=== PATIENT | female | born 1935 | race Caucasian/White ===

== ENCOUNTER 2016-11-14 10:09 | Day surgery (SDC) | payer MEDICARE ==
[~2016-11-14] VITALS: Ht 165.1 cm; Wt 86.2 kg
[~2016-11-14 10:09] MED LIST: ATEN1TAB73 PO; COUM2TAB PO; LEVO100T60 PO; LOVA1TAB47 PO; MULTTAB PO; PERC5TAB12 PO; TELM40 PO; VITA100020 SL
[2016-11-14] MEDS ORDERED: CHLORHEXIDINE GLUCONATE 2 % 1 PACK (2 CLOTHS) TOP SCH (10:45)
[2016-11-14] MEDS ORDERED: SODIUM CHLORID 0.9% 500 ML IV SCH (10:45)
[2016-11-14] MEDS ORDERED: LACTATED RINGER'S 1000 ML IV SCH (10:45)
[2016-11-14] MEDS ORDERED: NS 1000 ML IV SCH (10:45)
[2016-11-14] MEDS ORDERED: POVIDONE IODINE 5% (ANTISEPSIS KIT) 4 APPLICATIONS EACH NARE SCH (10:45)
[2016-11-14] MEDS ORDERED: INSULIN HUMAN REGULAR 1,000 UNITS/10 ML VIAL SQ PRN (10:45)
[2016-11-14] MEDS ORDERED: VANCOMYCIN 1000 MG/NS 250 ML IV SCH ×2 (10:45)
[2016-11-14] MEDS ORDERED: METOPROLOL TARTRATE 25 MG TAB PO PRN (10:45)
[2016-11-14] MEDS ORDERED: ceFAZolin 2 GM PREMIX 50 ML IV SCH (10:45)
[2016-11-14 10:49] VITALS: BP 168/80; PULSE 63; RESP 18; TEMP 98.1; O2SAT 97
[2016-11-14] MEDS ORDERED: SYSTSOL15 EACH EYE (11:03)
[2016-11-14] MEDS ORDERED: WARF4TAB51 PO (11:03)
[2016-11-14] MEDS ORDERED: LOVA20TA PO (11:03)
[2016-11-14] MEDS ORDERED: MELA5CAP2 (11:03)
[2016-11-14] MEDS ORDERED: ATEN25TA PO (11:03)
[2016-11-14] MEDS ORDERED: FLUO0.1S2 EACH EYE (11:03)
[2016-11-14] MEDS ORDERED: TELM1TAB PO (11:03)
[2016-11-14] MEDS ORDERED: BIOT1SUB SL (11:03)
[2016-11-14 11:05] LABS: AUTOMATED NEUTROPHIL # 5.8 TH/MM3 (1.8-7.7); BASOPHIL # 0.1 TH/MM3 (0-0.2); BASOPHIL % 0.7 % (0.0-2.0); EOSINOPHIL # 0.1 TH/MM3 (0-0.4); EOSINOPHIL % 1.2 % (0.0-4.0); HEMATOCRIT 43.4 % (35.0-46.0); HEMO FLAGS DIFF FINAL; LYMPH % 16.2 % (9.0-44.0); LYMPHOCYTE # 1.2 TH/MM3 (1.0-4.8); MEAN CELL VOLUME 95.1 FL (80.0-100.0); MEAN CORPUSCULAR HEMOGLOBIN 32.4 PG (27.0-34.0); MEAN CORPUSCULAR HGB CONC 34.1 % (32.0-36.0); MONO % 6.5 % (0.0-8.0); NEUT % 75.4 % (16.0-70.0); PLATELET COUNT 266 TH/MM3 (150-450); RED BLOOD COUNT 4.57 MIL/MM3 (4.00-5.30); RED CELL DISTRIBUTION WIDTH 14.3 % (11.6-17.2); WHITE BLOOD COUNT 7.7 TH/MM3 (4.0-11.0)
[2016-11-14 11:17] LABS: INTERNATIONAL NORMALIZED RATIO 1.3 RATIO; PROTHROMBIN TIME - PATIENT 14.9 SEC (9.8-11.6)
[2016-11-14 11:30] LABS: BICARBONATE 25.4 MEQ/L (21.0-32.0); POTASSIUM 5.3 MEQ/L (3.5-5.1)
[2016-11-14] MEDS ORDERED: PROPOFOL 200 MG/20 ML AMP IV ONE (13:10)
[2016-11-14] MEDS ORDERED: LIDOCAINE HCL 2% 50 ML VIAL ONE (13:16)
[2016-11-14] MEDS ORDERED: VANCOMYCIN 500 MG VIAL ONE (13:16)
[2016-11-14] MEDS ORDERED: MIDAZOLAM HCL 2 MG/2 ML VIAL ONE (13:24)
--- NOTE | 2016-11-15 10:28 | MP ---
cc: NICKI VALDOVINOS DATE OF SURGERY: 11/14/2016 INDICATION End-of-life of [employer] dual-chamber pacemaker, sick sinus syndrome with severe symptomatic bradycardia. PROCEDURE PERFORMED 1. Explantation of end-of-life [employer] dual-chamber pacemaker. 2. Placement of a new [employer] dual chamber pacemaker. ACCESS SITE Left subclavicular area. EQUIPMENT USED Generator: [employer] model [id number] dual-chamber pacemaker, serial number [id number]. Right atrial lead: [employer] model 1668PC, serial number [id number], placed 09/06/2009 (preserved). Right ventricular lead: [employer] model 1688PC, serial number [id number], placed 09/06/2009 (preserved). LEAD TESTING Right atrial lead: P-wave 2.7 millivolts, lead impedance 540 ohms, pacing threshold 0.75 volts at 0.4 milliseconds, pacing at 10 volts. Right ventricular lead: R-wave over 12 millivolts, lead impedance 660 ohms, pacing threshold 1.5 volts at 0.6 milliseconds. PARAMETERS Mode DDDR, low rate 60, upper rate 125. DIAGNOSIS Successful replacement of end-of-life [employer] dual-chamber pacemaker using a new [employer] dual-chamber device. DISPOSITION Ms. Maldonado will be monitored on telemetry after her procedure. She will be discharged home later today. I will see her back for a wound check and chronic device reprogramming in our office within two weeks. She will then see Dr. Rutledge for long-term device follow-up. MD TIGIST Pichardo/UNRULY /2:24 PM /10:06 AM ZOILA
--- NOTE | 2016-11-15 11:20 | EKG ---
Date Performed: 11/14/2016 Time Performed: 11:13:20 PTAGE: 80 years EKG: Sinus bradycardia Normal ECG except for rate PREVIOUS TRACING : 03/28/2013 09.04 DOCTOR: Chris Lloyd Interpretating Date/Time 11/15/2016 11:18:19
== END 2016-11-14 16:30 | disposition home or self-care (01) ==
LOC: HDOC 10:09 → HDIC 10:10 → HDOC 16:30
PROVIDERS: ATTEND Internal Medicine Interventional Cardiology
DX: Z45.010 Encounter for checking and testing of cardiac pacemaker pulse generator [battery] (principal); I49.5 Sick sinus syndrome; I48.91 Unspecified atrial fibrillation; E78.5 Hyperlipidemia, unspecified; I10 Essential (primary) hypertension
CPT/HCPCS: 33228; 80048; 85025; 85610; 85730; 93005; C1785; J0690; J2250; J3010; J3370; J7050

== ENCOUNTER → 2017-01-31 | Day surgery (SDC) | payer MEDICARE ==
[~2017-01-31] MED LIST changes: -ATEN1TAB73 PO; +ATEN25TA PO; +BIOT1SUB SL; -COUM2TAB PO; +FLUO0.1S2 EACH EYE; +LACTATED RINGER'S 1,000 ML BAG IV ONE; +LACTATED RINGER'S 1000 ML INJ 1,000 ML ONE; -LEVO100T60 PO; -LOVA1TAB47 PO; +LOVA20TA PO; +MELA5CAP2; -MULTTAB PO; -PERC5TAB12 PO; +PROPOFOL 500 MG/50 ML BTL IV ONE; +SYSTSOL15 EACH EYE; +TELM1TAB PO; -TELM40 PO; -VITA100020 SL; +WARF4TAB51 PO
--- NOTE | 2017-01-31 13:05 | GIPROC ---
[facility] [address] [facility], [address] COLONOSCOPY PROCEDURE REPORT EXAM DATE: 01/31/2017 PATIENT NAME: Yasmin Maldonado MR #: [id number] BIRTHDATE: 1935 ENDOSCOPIST: Thomas Laurent MD ORDER #: [id number] NURSE CONSULTANT: Melly Elise RN STATUS: outpatient INDICATIONS: The patient is a 81 yr old female here for a colonoscopy due to heme-positive stool and unexplained diarrhea PROCEDURE PERFORMED: Colonoscopy with biopsy MEDICATIONS: None and Per Anesthesia. PREP QUALITY: excellent ESTIMATED BLOOD LOSS: None CONSENT: The patient understands the risks and benefits of the procedure and understands that these risks include, but are not limited to: sedation, allergic reaction, infection, perforation and/or bleeding. Alternative means of evaluation and treatment include, among others: physical exam, x-rays, and/or surgical intervention. The patient elects to proceed with this endoscopic procedure. medical equipment was checked for proper function. Hand hygiene and appropriate measures for infection prevention was taken. After the risks, benefits and alternatives of the procedure were thoroughly explained, Informed consent was verified, confirmed and timeout was successfully executed by the treatment team. A digital exam revealed no abnormalities of the rectum The EC-3490Li ([id number]) endoscope was introduced through the anus and advanced to the cecum, which was identified by both the appendix and ileocecal valve. The instrument was then slowly withdrawn as the colon was fully examined. COLON FINDINGS: Mild diverticulosis was noted in the sigmoid colon. The colon mucosa was otherwise normal. Multiple random biopsies of the area were performed. Retroflexed views revealed no abnormalities The scope was then completely withdrawn from the patient and the procedure terminated. PROCEDURE WITHDRAWAL TIME:7.9minutes ADVERSE EVENTS: There were no complications. IMPRESSIONS: 1. Mild diverticulosis was noted in the sigmoid colon 2. The colon mucosa was otherwise normal; multiple random biopsies of the area were performed 3. Retroflexed views revealed no abnormalities 4. Revealed no abnormalities of the rectum RECOMMENDATIONS: 1. Await biopsy results. Biopsy results will not be ready for 7-10 days. If you don't hear from us in two weeks, call our office for results. 2. High fiber diet 3. Follow-up: GI Clinic 4 week(s) RECALL: Thomas Laurent MD eSigned: Thomas Laurent MD 01/31/2017 1:05 PM cc: Chery Myers M.D and Familia Salgado [facility]
--- NOTE | 2017-01-31 13:08 | GIPROC ---
[facility] [address] [facility], [address] EGD PROCEDURE REPORT EXAM DATE: 01/31/2017 PATIENT NAME: Yasmin Maldonado MR #: [id number] BIRTHDATE: 1935 ATTENDING: Thomas Laurent MD ORDER #: [id number] [employer] PROTECTIVE SERVICE: Melly Elise RN STATUS: outpatient INDICATIONS: The patient is a 81 yr old female here for an EGD due to unexplained diarrhea and occult blood positive PROCEDURE PERFORMED: EGD w/ biopsy MEDICATIONS: None, Per Anesthesia, None, and Per Anesthesia. TOPICAL ANESTHETIC: CONSENT: The patient understands the risks and benefits of the procedure and understands that these risks include, but are not limited to: sedation, allergic reaction, infection, perforation and/or bleeding. Alternative means of evaluation and treatment include, among others: physical exam, x-rays, and/or surgical intervention. The patient elects to proceed with this endoscopic procedure. medical equipment was checked for proper function. Hand hygiene and appropriate measures for infection prevention was taken. After the risks, benefits and alternatives of the procedure were thoroughly explained, Informed consent was verified, confirmed and timeout was successfully executed by the treatment team. The patient was anesthetized with topical anesthesia and the EC-3490Li ([id number]) endoscope was introduced through the mouth and advanced to the second portion of the duodenum. Retroflexed views revealed no abnormalities The gastroscope was then slowly withdrawn and removed. STOMACH: There was mild gastritis in the gastric antrum. Multiple biopsies were performed. The endoscopy was otherwise normal. DUODENUM: The duodenal mucosa appeared normal. Cold forcep biopsies were taken in the second portion. ADVERSE EVENTS: There were no complications. IMPRESSIONS: 1. There was mild gastritis in the gastric antrum; multiple biopsies were performed 2. Normal endoscopy otherwise 3. Normal duodenal mucosa 4. Retroflexed views revealed no abnormalities RECOMMENDATIONS: 1. Await biopsy results. Biopsy results will not be ready for 7-10 days. If you don't hear from us in two weeks, call our office for biopsy results. 2. Follow-up: GI clinic 4 week(s) PATIENT CONDITION: stable DISPOSITION: Home REPEAT EXAM: Thomas Laurent MD eSigned: Thomas Laurent MD 01/31/2017 1:07 PM cc: Chery Salgado [facility]
== END | disposition home or self-care (01) ==
LOC: ESDC 10:20
PROVIDERS: ATTEND Internal Medicine Gastroenterology
DX: R19.7 Diarrhea, unspecified (principal); K92.1 Melena; K57.90 Diverticulosis of intestine, part unspecified, without perforation or abscess without bleeding; K29.70 Gastritis, unspecified, without bleeding
CPT/HCPCS: 00740; 00810; 43239; 45380; 88305; 88312; J3010; J7120